=== PATIENT | female | born 1950 | race Caucasian/White ===

== ENCOUNTER → 2018-04-01 14:35 | Outpatient (POV) | payer MEDICARE, SELFPAY | PROVIDERS: Visit Provider Dermatology | DX: Z00.00 Encounter for general adult medical examination without abnormal findings (principal) ==

== ENCOUNTER → 2018-04-09 12:48 | Outpatient (POV) | payer MEDICARE, SELFPAY | DX: Z00.00 Encounter for general adult medical examination without abnormal findings (principal) ==

== ENCOUNTER 2020-12-05 11:00 | Outpatient (RCR) | payer MEDICARE, SELFPAY | END 2020-12-05 11:05 | disposition home or self-care (01) | LOC: PT 11:00 | PROVIDERS: PCP Family Medicine; Visit Provider Orthopaedic Surgery | DX: M25.561 Pain in right knee (principal); Z96.651 Presence of right artificial knee joint | CPT/HCPCS: 97010; 97016; 97110; 97140; 97163; 97164; 97530 ==

== ENCOUNTER 2023-04-15 16:54 | Emergency (ER) | payer MEDICARE, SELFPAY ==
[2023-04-15 17:14] VITALS: BP 170/70; PULSE 87; RESP 18; TEMP 37; O2SAT 97; BMI 32.9
[2023-04-15 17:40] VITALS: BP 129/51
[2023-04-15 18:07] VITALS: BP 129/50
[2023-04-15 18:54] VITALS: BP 149/69; PULSE 67; O2SAT 94
--- NOTE | 2023-04-15 19:55 | HMH.EDGENADL ---
Discharge Plan Disposition Patient Disposition: Home, Self-Care Prescriptions Prescriptions: New ondansetron 4 mg tablet,disintegrating 4 mg PO Q6H PRN (Reason: nausea and vomiting) Qty: 10 0RF No Action pravastatin 40 MG tablet 40 mg PO HS levothyroxine 75 MCG tablet 75 mcg PO DAILY triamterene-hydrochlorothiazid [Maxzide-25mg] 1 EACH tablet 1 ea PO DAILY naproxen 500 MG tablet 500 mg PO Q12H PRN (Reason: Mild To Moderate Pain) 30 Days Qty: 60 0RF Referrals Follow up/Referrals: Carl Pate MD [Primary Care Provider] - See instructions Activity Restrictions/Add. Instructions Additional Instructions/Restrictions: Call your family doctor to establish care for this visit to the emergency department and schedule follow-up within 48 hours to ensure improvement. If you have any worsening of your condition or any other concerning signs or symptoms, return to the emergency department or your primary care doctor for further evaluation. Follow-up with your family doctor regarding this concussion as well. Nino for nausea Clinical Impressions Clinical Impression: Concussion w moderate LOC w/o open intracranial wound Discharge ED Provider: Moustapha Carter General Adult HPI General Chief complaint: Recheck/Abnormal Lab/Rx Stated complaint: AO [id number] left hip pain, back of head pain Time Seen by Provider: 04/15/23 17:16 Mode of Arrival: Ambulatory Source of Information: Patient Limitations: No Limitations Description of Symptoms (Recalled from ER Triage Doc. by RN): c/o a slight JORDAN, fast hr, so she checked her bp and it was up, unsure what the reading was. History of Present Illness HPI narrative: 72-year-old female presenting with hypertension. Stated that her family doctor told her her blood pressure was up, so she came to the emergency department. Having intermittent headaches and anxiety. Does not member what her blood pressure read, but came to the ER for further evaluation. Denies any other symptoms Related Data Home Medications Medication Instructions Recorded Confirmed levothyroxine 75 mcg tablet 75 mcg PO DAILY hypothyroid 07/23/17 11/12/18 pravastatin 40 mg tablet 40 mg PO HS Cholesterol 07/23/17 11/12/18 triamterene 37.5 1 ea PO DAILY blood pressure 07/23/17 11/12/18 mg-hydrochlorothiazide 25 mg tablet (Maxzide-25mg) Previous Rx's Medication Instructions Recorded naproxen 500 mg tablet 500 mg PO Q12H PRN Mild To 02/20/19 Moderate Pain 30 days #60 tabs ondansetron 4 mg disintegrating 4 mg PO Q6H PRN nausea and 04/15/23 tablet vomiting #10 tabs Allergies Allergy/AdvReac Type Severity Reaction Status Date / Time No Known Allergies Allergy Verified 08/05/18 06:54 [facility] Disclaimer: The information contained in this section may have been updated after the patient was seen, as this information can be updated by other users. Social History Smoking Status: Never smoker alcohol intake: never current occupational status: other Travel in the last 8 weeks: None caffeine: Yes ROS Obtained: Yes All systems reviewed & no additional complaints except as documented Physical Exam General General appearance: alert and in no apparent distress Head Head exam: atraumatic and normocephalic Eye Eye exam: Present normal appearance, PERRL and EOMI ENT ENT exam: Present mucous membranes moist Neck Neck exam: Present normal inspection, full ROM and trachea midline Respiratory Respiratory exam: Absent respiratory distress, wheezes, stridor, accessory muscle use or prolonged expiratory phase Cardiovascular Cardiovascular exam: Present normal rhythm Abdominal Exam Abdominal exam: Present soft; Absent distention, tenderness, guarding, rebound, rigidity or normal bowel sounds Extremities Exam Extremities exam: Absent edema Neurological Exam Neurological exam: Present alert, oriented X3, CN II-XII intact and normal gait; Absent motor sens
[2023-04-15 20:29] VITALS: BP 130/50; PULSE 65; O2SAT 95
--- NOTE | 2023-04-15 20:49 | CT_ITS ---
PROCEDURE INFORMATION: Exam: CT Cervical Spine Without Contrast Exam date and time: 04/15/2023 9:02 PM Age: 72 years old Clinical indication: Injury or trauma; Fall; Additional info: Fall, amnesia TECHNIQUE: Imaging protocol: Computed tomography of the cervical spine without contrast. Radiation optimization: All CT scans at this facility use at least one of these dose optimization techniques: automated exposure control; mA and/or kV adjustment per patient size (includes targeted exams where dose is matched to clinical indication); or iterative reconstruction. REPORTING DATA: Count of CT and Cardiac NM exams in prior 12 months: This patient has received 0 known CTs and 0 known cardiac nuclear medicine studies in the 12 months prior to the current study. COMPARISON: CT HEAD/BRAIN WO CON 04/15/2023 9:02 PM FINDINGS: Bones/joints: Slight cervical kyphosis. No acute fracture or subluxation. Significant degenerative arthritic changes of the atlantoaxial joint, right C2-C3 facet joint and C5-C6 disc space. Significant bilateral facet arthropathy at C7-T1 with minimal grade 1 anterolisthesis of C7. Moderate degenerative disc changes in the upper thoracic spine. Lungs: Lung apices are normal. Soft tissues: Unremarkable. IMPRESSION: No acute fracture. Multilevel degenerative changes as noted.
--- NOTE | 2023-04-15 20:49 | CT_ITS ---
PROCEDURE INFORMATION: Exam: CT Head Without Contrast Exam date and time: 04/15/2023 9:02 PM Age: 72 years old Clinical indication: Injury or trauma; Fall; Additional info: Fall, amnesia TECHNIQUE: Imaging protocol: Computed tomography of the head without contrast. Radiation optimization: All CT scans at this facility use at least one of these dose optimization techniques: automated exposure control; mA and/or kV adjustment per patient size (includes targeted exams where dose is matched to clinical indication); or iterative reconstruction. REPORTING DATA: Count of CT and Cardiac NM exams in prior 12 months: This patient has received 0 known CTs and 0 known cardiac nuclear medicine studies in the 12 months prior to the current study. COMPARISON: HEADWO CT head/brain wo con 11/12/2018 10:08 AM FINDINGS: Brain: Moderate generalized cerebral atrophy. No intracranial mass, hemorrhage or evidence of acute ischemia. Cerebral ventricles: No ventriculomegaly. Paranasal sinuses: Visualized sinuses are unremarkable. No fluid levels. Mastoid air cells: Visualized mastoid air cells are well aerated. Bones/joints: Unremarkable. No acute fracture. Soft tissues: Left posterior scalp hematoma and swelling. IMPRESSION: No acute intracranial abnormality. Left posterior scalp hematoma.
--- NOTE | 2023-04-15 20:49 | XR_ITS ---
PROCEDURE INFORMATION: Exam: XR Chest Exam date and time: 04/15/2023 9:01 PM Age: 72 years old Clinical indication: Injury or trauma; Fall; Blunt trauma (contusions or hematomas) TECHNIQUE: Imaging protocol: Radiologic exam of the chest. Views: 1 view. COMPARISON: CR CXR1VP XR chest portable 11/12/2018 10:03 AM FINDINGS: Lungs: No evidence of acute pulmonary disease or infiltrates; lung rizzo appear clear. Pleural spaces: No evidence of pleural effusion, pneumothorax, or pleural thickening in the visualized pleural spaces. Heart/Mediastinum: There is a left chest implanted cardiac device. Stable cardiac and mediastinal contours. Vasculature: There are calcifications of the aortic arch. Bones/joints: No evidence of acute osseous abnormalities within the visualized portions of the thoracic spine and ribs. Osseous structures appear appropriate for patient age. IMPRESSION: No dense parenchymal consolidation, pleural effusion, or pneumothorax.
[2023-04-15 21:01] LABS: Basophils # 0.1 K/mm3 (0-0.2); Basophils % 0.4 % (0.1-2.0); Eosinophils # 0.2 K/mm3 (0.0-0.4); Eosinophils % 1.1 % (0.1-12.0); Hematocrit 42.5 % (37.0-47.0); Hemoglobin 14.2 g/dL (12.2-16.2); Lymphocytes # 1.9 K/mm3 (0.7-4.5); Lymphocytes % 12.5 % (10-50); Mean Corpuscular HGB Conc 33.4 g/dL (31.8-35.4); Mean Corpuscular Hemoglobin 29.6 pg (27.0-31.2); Mean Corpuscular Volume 88.6 fl (81-99); Mean Platelet Volume 6.8 fl (7.4-10.4); Monocytes % 6.4 % (1.7-9.3); Neutrophils % 79.7 % (37.0-80.0); Platelet Count 253 K/mm3 (142-424); Red Cell Distribution Width 15.8 % (11.5-17.5)
--- NOTE | 2023-04-15 21:07 | XR_ITS ---
PROCEDURE INFORMATION: Exam: XR Pelvis Exam date and time: 04/15/2023 9:05 PM Age: 72 years old Clinical indication: Injury or trauma; Fall; Blunt trauma (contusions or hematomas); Does not apply; Pelvic region TECHNIQUE: Imaging protocol: Radiologic exam of the pelvis. Views: 1 or 2 view. COMPARISON: No relevant prior studies available. FINDINGS: Bones/joints: There is mild osteoarthritis of the hips with joint space narrowing, productive changes, and subchondral sclerosis. There are partially visualized degenerative changes of the sacroiliac joints and lumbar spine as well as some degenerative disease of the pubic symphysis. The osseous structures are intact, with no signs of acute fracture, dislocation, or malalignment. Age-related degenerative changes are observed. There is no evidence of abnormal bone density or destructive lesions. Soft tissues: The soft tissues appear within normal limits. IMPRESSION: At the time of imaging, the study shows no acute osseous abnormalities but does reveal signs of age-related degenerative changes.
[2023-04-15 21:08] LABS: Alanine Aminotransferase 27 U/L (12-78); Albumin Level 4.4 g/dl (3.5-5.0); Albumin/Globulin Ratio 1.3 (1.1-1.8); Alkaline Phosphatase 75 U/L (38-126); Anion Gap 9.4 mEq/L (5-15); Aspartate Amino Transferase 37 U/L (14-36); Bilirubin,Total 0.5 mg/dl (0.2-1.3); Blood Urea Nitrogen 19 mg/dl (7-17); Calcium 9.1 mg/dl (8.4-10.2); Carbon Dioxide 26 mmol/L (22.0-30.0); Chloride 104 mmol/L (98-107); Creatinine Clearance Estimated 66 mL/min (50-200); Estimated Glomerular Filt Rate 71 ml/min (>60); GFR (African American) 85 ML/MIN (>60); Globulin 3.5 g/dL (1.3-3.2); Glucose 130 mg/dl (74-100); Potassium 4.4 mmoL/L (3.5-5.1); Sodium 135 mmol/L (136-145); Total Protein,Serum 7.9 g/dl (6.3-8.2)
[2023-04-15 21:10] LABS: MANUAL DIFFERENTIAL MANUAL DIFFERENTIAL (MANUAL DIFF)
--- NOTE | 2023-04-15 21:33 | ECG_ITS ---
APPROVED REPORT Exam: Resting ECG HR:64 bpm ECG Measurements Heart Rate 64 AXES ME 223 P -53 QRSd 117 QRS 74 QT 415 T 25 QTc 425 Conclusion ELECTRONIC ATRIAL PACEMAKER POSSIBLE INFERIOR MYOCARDIAL INFARCTION , PROBABLY OLD [30 ms Q WAVE IN II/aVF] ABNORMAL RHYTHM ECG UNCONFIRMED REPORT Electronically signed by : Tesfaye Alba MD 04/17/2023 18:43:08
[2023-04-15 21:34] LABS: Lymphocytes % 17 % (10-50); Monocytes % 5 % (2-9); Neutrophils % 78 % (42-76); Platelet Estimate Normal; RBC Morphology Normal; Total Cells Counted 100
[2023-04-15 21:47] LABS: Microscopic, Urine URINE MICROSCOPIC (MICROSCOPIC)
[2023-04-15 21:54] LABS: Appearance,Urine CLEAR (Clear); Bilirubin,Urine Negative (Negative); Blood, Urine Negative (Negative); Color,Urine YELLOW (Yellow); Glucose,Urine (UA) Negative (Negative); Ketones,Urine Negative (Negative); Leukocyte Esterase,Urine Negative (Negative); Nitrate,Urine Negative (Negative); Protein,Urine Negative (Negative); Specific Gravity, Urine 1.025 (1.005-1.030); Urobilinogen,Urine 0.2 EU/dl (0.2)
[2023-04-15 22:26] LABS: Bacteria,Urine Trace /lpf; WBC,Urine Occasional #/hpf (0-3)
[2023-04-15 22:46] VITALS: BP 135/52; PULSE 60; RESP 17; TEMP 36.8; O2SAT 95
== END 2023-04-15 22:53 | disposition home or self-care (01) ==
PROVIDERS: Emergency Provider Emergency Medicine; PCP Family Medicine
DX: S06.0X9A Concussion with loss of consciousness of unspecified duration, initial encounter (principal); I10 Essential (primary) hypertension; Z95.0 Presence of cardiac pacemaker; W01.0XXA Fall on same level from slipping, tripping and stumbling without subsequent striking against object, initial encounter
CPT/HCPCS: 70450; 71045; 72125; 72170; 80053; 81001; 85007; 85025; 93005; 96374; 96375; 99285; J0131

== ENCOUNTER 2023-04-29 10:26 | Emergency (ER) | payer MEDICARE, SELFPAY ==
--- NOTE | 2023-04-29 11:39 | XR_ITS ---
PROCEDURE INFORMATION: Exam: XR Sacrum and Coccyx, 2 or More Views Exam date and time: 04/29/2023 11:46 AM Age: 72 years old Clinical indication: Injury or trauma; Fall; Blunt trauma (contusions or hematomas) TECHNIQUE: Imaging protocol: XR of the sacrum and coccyx, 2 or more views. COMPARISON: CR Hip L 04/29/2023 11:42 AM FINDINGS: Bones/joints: Normal. No acute fracture or deformity. Sacroiliac joints preserved. Soft tissues: Normal. IMPRESSION: No acute findings.
--- NOTE | 2023-04-29 11:39 | XR_ITS ---
PROCEDURE INFORMATION: Exam: XR Left Hip Exam date and time: 04/29/2023 11:42 AM Age: 72 years old Clinical indication: Injury or trauma; Fall; Blunt trauma (contusions or hematomas); Bilateral; Hip and pelvic region and sacrum and coccyx TECHNIQUE: Imaging protocol: Radiologic exam of the left hip. Views: 2 or 3 views hip with pelvis when performed. COMPARISON: CR XR PELVIS 1-2V 04/15/2023 9:05 PM FINDINGS: Bones/joints: Mild degenerative changes left hip joint consisting of mild joint space narrowing and subchondral sclerosis, unchanged. Mild degenerative changes also present the sacroiliac joints and pubic symphysis unchanged. No fracture or malalignment. There is a tubular shaped lucency with sclerotic margins projecting over the left femoral head and neck better visualized on today's exam that may be iatrogenic in nature representing ghost shadow from prior instrumentation which should be correlated with history. Soft tissues: Unremarkable. IMPRESSION: No acute bony abnormalities.
[2023-04-29 11:40] VITALS: BP 156/79; PULSE 83; RESP 18; TEMP 36.8; O2SAT 99; BMI 34.4
--- NOTE | 2023-04-29 12:08 | EXP.UTC ---
Discharge Plan Disposition Patient Disposition: Home, Self-Care Condition: Good Prescriptions Prescriptions: No Action lisinopril 20 mg tablet 20 mg PO DAILY Patient Comments: TAKE 1 TABLET BY MOUTH TWICE A DAY amlodipine 5 mg tablet 5 mg PO DAILY Patient Comments: TAKE 1 TABLET BY MOUTH EVERY DAY levothyroxine 88 mcg tablet 88 mcg PO DAILY Patient Comments: TAKE 1 TABLET BY MOUTH EVERY DAY pravastatin 80 mg tablet 80 mg PO DAILY propranolol 20 mg tablet 20 mg PO DAILY Patient Comments: TAKE 1 TABLET BY MOUTH DAILY NEEDED FOR TREMOR. TAKE 1-2 HOURS BEFORE EATING OUT Eliquis 5 mg tablet 5 mg PO DAILY Patient Comments: TAKE 1 TABLET BY MOUTH TWICE A DAY Referrals Follow up/Referrals: Provider,Referral, MD [Primary Care Provider] - See instructions Activity Restrictions/Add. Instructions Additional Instructions/Restrictions: Over the counter Motrin and/or Tylenol if you can take it for pain Soaking in warm water and epson salt may help with soreness and bruising Follow up with you Family Doctor if no improvement or any worsening of symptoms Return if needed Straight to ER if any life threatening symptoms Clinical Impressions Clinical Impression: Fall Qualifiers: Encounter type: subsequent encounter Qualified Code(s): W19.XXXD - Unspecified fall, subsequent encounter Instructions Patient Instructions: DI for Contusion, DI for Hip Pain Discharge ED Provider: Shannon Menjivar [facility] General Stated complaint: AO [id number] lower back and lt hip pain Mode of Arrival: Ambulatory Source of Information: Patient Limitations: No Limitations Time Seen by Provider: 04/29/23 12:11 Description of Symptoms (Recalled from Triage Doc. by RN): PATIENT C/O TAIL BONE AND LEFT HIP PAIN AFTER FALLING LAST WEEK HEENT Symptoms (Recalled from RN notes): No Resp Symptoms (Recalled from RN notes): No Skin Symptoms (Recalled from RN notes): No MS Symptoms (Recalled from RN notes): Yes Functional Status (Recalled from RN notes): WNL History of Present Illness Provider Complaint: Patient states that she fell on 04/15 and was seen in the ED States that since then she has been having pain in her tail bone and her left hip area States that she came back in to get them checked States that she has been up walking around and stuff but her tail bone hurts when she sits on it Related Data Home Medications Medication Instructions Recorded Confirmed amlodipine 5 mg tablet 5 mg PO DAILY 04/29/23 04/29/23 apixaban 5 mg tablet (Eliquis) 5 mg PO DAILY 04/29/23 04/29/23 levothyroxine 88 mcg tablet 88 mcg PO DAILY 04/29/23 04/29/23 lisinopril 20 mg tablet 20 mg PO DAILY 04/29/23 04/29/23 pravastatin 80 mg tablet 80 mg PO DAILY 04/29/23 04/29/23 propranolol 20 mg tablet 20 mg PO DAILY 04/29/23 04/29/23 Allergies Allergy/AdvReac Type Severity Reaction Status Date / Time No Known Allergies Allergy Verified 08/05/18 06:54 Worker's Comp Is this a Worker's Comp case?: No [facility] Disclaimer: The information contained in this section may have been updated after the patient was seen, as this information can be updated by other users. Social History Smoking Status: Never smoker alcohol intake: never current occupational status: other Travel in the last 8 weeks: None caffeine: Yes ROS Obtained: Yes All systems reviewed & no additional complaints except as documented and Yes Systems reviewed as appropriate & no additional complaints except as documented Constitutional Constitutional: Reports system reviewed and no additional complaints, except as documented and Reports as per HPI ENT Ears, Nose, Mouth, and Throat: Reports system reviewed and no additional complaints, except as documented and Reports as per HPI Cardiovascular Cardiovascular: Reports system reviewed and no additional complaints, except as documented and Reports as per HPI Respiratory Respiratory: Reports system reviewed and no additional complaints, except as documented and Reports as per HPI Gastrointestinal Gastrointestingal: Reports system reviewed and no additional complaints, except as documented and as per HPI Musculoskeletal Musculoskeletal: Reports system reviewed and no additional complaints, except as documented, Reports as per HPI and Reports other Comments: pain in left hip and tail bone since falling on 04/15 Physical Exam General General appearance: alert and in no apparent distress ENT ENT exam: Present mucous membranes moist Respiratory Respiratory exam: Present normal lung sounds bilaterally; Absent respiratory distress or wheezes Cardiovascular Cardiovascular exam: Present regular rate, normal rhythm and normal heart sounds Expanded Lower Extremity Exam Left: Hip/Pelvis exam: Present tenderness and pelvis stable; Absent swelling, ecchymosis, deformity, external rotation, internal rotation or shortening of leg Knee exam: Present normal inspection Lower leg exam: Present normal inspection Ankle exam: Present normal inspection Foot/toe exam: Present normal inspection Back Exam Back 1 view image: 1. bruising noted reports pain with sitting and laying certain ways 2. reports pain in left hip with certain movements since falling on 04/15 no bruising noted Neurological Exam Neurological exam: Present alert, oriented X3 and normal gait Medical Decision Making Bobby Inquiry Pt receiving controlled substance: No Bobby was queried for this patient: No Vital Signs: 04/29/23 11:40 Temperature 98.2 F Temperature Source Oral Pulse Rate [Left Brachial] 83 Respiratory Rate 18 Blood Pressure [Left Arm] 156/79 H Blood Pressure Mean [Left Arm] 104 Blood Pressure Source [Left Arm] Automatic Cuff Blood Pressure Position [Left Arm] Sitting 02 Sat by Pulse Oximetry 99 Oxygen Delivery Method Room Air Orders (Tests/Meds): ORDERS Category Date Time Status XR coccyx 2V Stat Exams 04/29/23 11:39 Taken XR hip LT 2-3V w/pelvis Stat Exams 04/29/23 11:39 Taken Radiology Data #1: Image(s): Hip Image Reviewed: Yes I have reviewed radiologist's interpretation IMPRESSION: No acute bony abnormalities. #2: Image(s): Other (coccyx) Image Reviewed: Yes I have reviewed radiologist's interpretation IMPRESSION: No acute findings.
[2023-04-29 12:38] VITALS: BP 156/79; PULSE 83; RESP 18; TEMP 36.8; O2SAT 99
== END 2023-04-29 12:40 | disposition home or self-care (01) ==
PROVIDERS: Emergency Provider Nurse Practitioner
DX: M25.552 Pain in left hip (principal); M54.59 Other low back pain; W19.XXXA Unspecified fall, initial encounter
CPT/HCPCS: 72220; 73502; 99204; 99212; G0463

== ENCOUNTER 2023-09-24 09:11 | Day surgery (SDC) | payer MEDICARE, SELFPAY ==
[2023-09-24 09:52] VITALS: BP 164/99; PULSE 82; RESP 20; TEMP 37.1; O2SAT 99
[2023-09-24] MEDS: PHENYLEPHRINE 2.5% OPHTH SOLN 2ML OP (10:05)
[2023-09-24] MEDS: APRACLONIDINE 0.5% OPHTH SOLN 5ML OP (10:05)
[2023-09-24] MEDS: TETRACAINE 0.5% OPTH SOL 15ML OP (12:19)
[2023-09-27] MEDS: TROPICAMIDE 1% OPTH SOLN 2ML OP (12:19)
== END 2023-09-24 10:53 | disposition home or self-care (01) ==
PROVIDERS: Visit Provider Ophthalmology
PROC: (CPT 66821; principal; 2023-09-24 10:30)
DX: H26.491 Other secondary cataract, right eye (principal); Z79.899 Other long term (current) drug therapy
CPT/HCPCS: 66821